=== PATIENT | female | born 2000 | race Caucasian/White ===

== ENCOUNTER 2019-11-01 14:56 | Emergency (ER) | payer BC ==
[2019-11-01] MEDS ORDERED: Ondansetron 4 MG Tab.DIS PO STA (15:19)
[2019-11-01] MEDS ORDERED: Ibuprofen 600 MG Tab PO ONE (15:19)
--- NOTE | 2019-11-01 15:54 | EDM.PDOC ---
ED HPI GENERAL MEDICAL PROBLEM - General Chief Complaint: Headache Stated Complaint: HEAD INJURY Time Seen by Provider: 11/01/19 15:40 Source of Information: Reports: Patient History Limitations: Reports: No Limitations - History of Present Illness INITIAL COMMENTS - FREE TEXT/NARRATIVE: Patient presented to the ED because of headache and nausea after hitting her head on the ceiling fan. There is no LOC. - Related Data Allergies Allergy/AdvReac Type Severity Reaction Status Date / Time azithromycin [From Zithromax] Allergy Hives Verified 05/05/13 07:17 Home Meds: Home Meds Ondansetron [Zofran ODT] 4 mg PO Q6H PRN #5 tab.dis 11/01/19 [Rx] ED ROS GENERAL - Review of Systems Review Of Systems: See Below Constitutional: Reports: No Symptoms HEENT: Reports: No Symptoms Respiratory: Reports: No Symptoms Cardiovascular: Reports: No Symptoms Endocrine: Reports: No Symptoms GI/Abdominal: Reports: Nausea : Reports: No Symptoms Musculoskeletal: Reports: No Symptoms Skin: Reports: No Symptoms Neurological: Reports: Headache Psychiatric: Reports: No Symptoms Hematologic/Lymphatic: Reports: No Symptoms Immunologic: Reports: No Symptoms ED EXAM, HEAD INJURY - Physical Exam Exam: See Below Exam Limited By: No Limitations General Appearance: Alert, No Apparent Distress Head: Atraumatic, Normocephalic Eyes: Bilateral Eye: PERRL Ears: Normal External Exam, Normal Canal, Hearing Grossly Normal, Normal TMs Nose: Normal Inspection, Normal Mucousa, No Blood Throat/Mouth: Normal Inspection, Normal Lips, Normal Teeth, Normal Gums Neck: Non-Tender, Full Range of Motion, Normal Alignment, Normal Inspection Respiratory: No Respiratory Distress, Lungs Clear, Normal Breath Sounds Cardiovascular: Normal Peripheral Pulses, Regular Rate, Rhythm, No Edema, No Gallop GI/Abdominal Exam: Soft, Non-Tender Extremities: Normal Inspection, Normal Range of Motion Course - Vital Signs Text/Narrative:: Head CT-neg ibuprofen 600 mg po x1 zofran ODT 4 mg po x1 - Orders/Labs/Meds Orders: Active Orders 24 hr Category Date Time Status Head wo Cont [CT] Stat Exams 11/01/19 15:14 Taken Meds: Medications Discontinued Medications Generic Name Dose Route Start Last Admin Trade Name Freq PRN Reason Stop Dose Admin Ibuprofen 600 mg 11/01/19 15:19 11/01/19 15:38 Motrin PO 11/01/19 15:20 600 mg ONETIME ONE Administration Ondansetron HCl 4 mg 11/01/19 15:19 11/01/19 15:38 Zofran Odt PO 11/01/19 15:20 4 mg NOW STA Administration Departure - Departure Time of Disposition: 15:55 Disposition: Home, Self-Care 01 Condition: Good Clinical Impression: Head injury - Discharge Information Prescriptions: Ondansetron [Zofran ODT] 4 mg PO Q6H PRN #5 tab.dis PRN Reason: Nausea Referrals: Monik Jovel TELEVISION TECHNICIAN [Primary Care Provider] - Additional Instructions: Please read discharge instructions on head injury take zofran ODT 4 mg every 6 hours as needed for nausea Ibuprofen 600 mg every 4-6 hours as needed for headache follow up if symptoms persist - My Orders Last 24 Hours: My Active Orders 11/01/19 15:14 Head wo Cont [CT] Stat - Assessment/Plan Last 24 Hours: My Active Orders 11/01/19 15:14 Head wo Cont [CT] Stat
--- NOTE | 2019-11-01 16:31 | CT ---
INDICATION: Head injury - ceiling fan fell on top of head 2 days prior. No loss of consciousness. CT HEAD WITHOUT CONTRAST: Spiral 3.75 mm axial sections were obtained through the brain without contrast with sagittal and coronal reconstructions 11/01/19 - no comparisons. Total exam DLP was 1270.76 mGy-cm. Paranasal sinuses and mastoid air cells appear to be well aerated. No cranial fracture site was noted. No definite scalp hematoma was seen. For the most part, the orbits appear unremarkable; however, along the lateral aspect of the right orbit, there is a calcific or metallic density oval in shape which appears to lie at the muscle and could represent a dystrophic calcification - correlate clinically. No shift of midline structures, ventricular abnormalities or abnormal areas of density were identified - no bleeding site or hematoma was seen. IMPRESSION: Normal CT brain without contrast. Report was called to Dr. Calloway at 1548 hours. [facility]
== END 2019-11-01 15:58 | disposition home or self-care (01) ==
LOC: FB.ED 14:56
DX: S09.90XA Unspecified injury of head, initial encounter (principal); W22.8XXA Striking against or struck by other objects, initial encounter; Z88.1 Allergy status to other antibiotic agents
CPT/HCPCS: 70450; 99283; A9270